=== PATIENT | female | born 1985 | race Caucasian/White ===

== ENCOUNTER 2024-11-16 19:30 | Emergency (ER) | payer OTHER, SELFPAY ==
[2024-11-16 19:31] VITALS: BP 147/86; PULSE 65; RESP 20; TEMP 36.8; O2SAT 99; BMI 22.6
[2024-11-16 19:59] LABS: Ur Creatinine Normal (Normal); Ur Specific Gravity Normal (Normal); Urine Amphetamines Negative (Negative); Urine Barbiturates Negative (Negative); Urine Benzodiazepines Negative (Negative); Urine Cocaine Negative (Negative); Urine MDMA Negative (Negative); Urine Methadone Negative (Negative); Urine Opiates Negative (Negative); Urine Oxycodone Negative (Negative); Urine Phencyclidine Negative (Negative); Urine THC Positive (Negative); Urine Tricyclic Antidepressant Negative (Negative); Urine pH Normal (Normal)
[2024-11-16 20:00] LABS: Add Manual Diff / Slide Review NO; Basophils Absolute Auto 100 /uL (0-100); Basophils Percent Auto 0.6 % (0-2); Eosinophils Absolute Auto 100 /uL (0-450); Eosinophils Percent Auto 0.4 % (2-4); Hemoglobin 14.6 g/dL (12.0-16.0); Lymphocytes Absolute Auto 2000 /uL (1100-4500); Lymphocytes Percent Auto 14.4 % (25-40); Mean Corpuscular HGB Conc 34.6 % (30-36); Mean Corpuscular Hemoglobin 32.5 PG (26-34); Mean Corpuscular Volume 93.9 fL (80-100); Monocytes Absolute Auto 1300 /uL (0-900); Monocytes Percent Auto 8.9 % (3-14); Neutrophils Absolute Auto 10800 /uL (1500-7000); Neutrophils Percent Auto 75.7 % (50-75); Platelet Count 328 X10^3/uL (150-400); Red Blood Cell Count 4.47 X10^6/uL (4.0-5.2); Red Cell Distribution Width 13.6 % (11.6-14.8); White Blood Cell Count 14.2 X10^3/uL (4.5-11.0)
[2024-11-16 20:01] LABS: Urine Volume 10mL (spun)
[2024-11-16 20:03] LABS: Bacteria Urine None Seen; RBC Urine None Seen (0-5/HPF); Squamous Epithelial Cell Urine 5-10 /HPF (0-5/HPF); WBC Urine 1-5/HPF (0-5/HPF)
[2024-11-16 20:11] LABS: Acetaminophen < 10 ug/mL (10-30); Alanine Aminotransferase 32 IU/L (<35); Albumin 4.9 g/dL (3.5-5.0); Albumin Globulin Ratio 1.4 (1.0-2.8); Alkaline Phosphatase 102 U/L (38-126); Aspartate Aminotransferase 89 IU/L (14-36); BUN Creatinine Ratio 9.4 (6-22); Bilirubin Total 0.9 mg/dL (0.2-1.3); Blood Urea Nitrogen 6 mg/dL (7-17); Calcium 9.5 mg/dL (8.4-10.2); Carbon Dioxide 26 mmol/L (22-32); Chloride 101 mmol/L (98-107); Estimated Glomerular Filt Rate > 60 mL/min (>60); Ethanol (ETOH) 217 mg/dL; Globulin 3.4 g/dL (1.7-4.1); Glucose 112 mg/dL (70-100); HEMOLYSIS < 15 (0-50); Potassium 4.3 mmol/L (3.4-5.1); Salicylate < 1.0 mg/dL (<20); Sodium 139 mmol/L (137-145); Total Protein 8.3 g/dL (6.3-8.2)
[2024-11-16 20:43] LABS: Free T4, Direct Thyroxine 1.48 ng/dL (0.78-2.19)
--- NOTE | 2024-11-16 20:43 | ED.GENADULT ---
HPI - General Adult <Ap DO Tayler - Last Filed: 11/17/24 03:54> General Chief complaint: Toxicology Problem Stated complaint: AGUSTIN ingested mushrooms and vaginal smell Time Seen by Provider: 11/16/24 20:43 Source: EMS and police Mode of arrival: EMS History of Present Illness HPI narrative: 39-year-old female without any significant past medical history presenting from the emergency department via EMS/police for altered mental status. According to police patient was found unresponsive outside and was brought in to be evaluated, at time of evaluation patient is speaking in full sentences she is standing moving all 4 extremities, she does endorse taking 2 gummy mushrooms as well as alcohol. She is also stating that she is complaining of some mild odor from her vagina, but denies any actual dysuria or hematuria. She denies any other symptoms at this time. On initial examination patient is tangential with her speech and thought however she is cooperative she denies any suicidal homicidal ideations at this time. Review of Systems <Ap Lester DO - Last Filed: 11/17/24 03:54> Review of Systems Narrative: General: Denies fever, chills, weight loss HEENT: Denies headache, eye drainage, eye irritation, head trauma, sore throat, voice change Cardiovascular: Denies any chest pain, palpitations, tachycardia Respiratory: Denies any shortness of breath, cough, wheeze, stridor GI/: Denies any abdominal pain, nausea, vomiting, diarrhea, bright red blood per rectum, melanotic stools, urinary frequency, urinary retention, dysuria, hematuria MSK: Denies any joint pain, muscle pains, swelling Skin: Denies any rashes, lesions, discoloration Neuro: Denies any headache, lightheadedness, dizziness, fainting, weakness Psych: Positive increased anxiety, positive drug ingestion Denies SI/HI Patient History <Ap Lester DO - Last Filed: 11/17/24 03:54> Social History Smoking Status: Current every day smoker Smoking Status: Current every day smoker tobacco type: cigarettes and vaping Alcohol type: wine and hard liquor Exam <Ap Lester DO - Last Filed: 11/17/24 03:54> Narrative Exam Narrative: General: Cooperative, patient disheveled, not in acute distress HEENT: Normocephalic, atraumatic, PERRLA, normal sclera, eyelids normal Neck: Active full range of motion, atraumatic Chest: Normal to inspection, negative crepitus, no overlying erythema ecchymosis Respiratory: Normal respiratory effort, not in acute respiratory distress, clear to auscultation bilaterally negative cough, wheeze, tachypnea, rhonchi, rales Cardiology: Regular rate rhythm negative gallop, murmur, rubs GI/: No tenderness to palpation, soft, non rigid, normal to inspection, exam deferred MSK: Full active range of motion in all 4 extremities, atraumatic, no tenderness to palpation of any bony prominences Skin: No rashes or lesions noted Neuro: Alert awake oriented x3, moves all 4 extremities spontaneously, cranial nerves intact, able to answer all questions appropriately follows commands appropriately Psych: Cooperative, negative suicidal or homicidal ideations, patient with pressured speech tangential but cooperative Initial Vital Signs Initial Vital Signs: Vital Signs Temperature 98.2 F 11/16/24 19:31 Pulse Rate 65 11/16/24 19:31 Respiratory Rate 20 11/16/24 19:31 Blood Pressure 147/86 H 11/16/24 19:31 Pulse Oximetry 99 11/16/24 19:31 Oxygen Delivery Method Room Air 11/16/24 19:31 <Nan Franco, DO - Last Filed: 11/17/24 18:49> Initial Vital Signs Initial Vital Signs: Vital Signs Temperature 98.2 F 11/16/24 19:31 Pulse Rate 65 11/16/24 19:31 Respiratory Rate 20 11/16/24 19:31 Blood Pressure 147/86 H 11/16/24 19:31 Pulse Oximetry 99 11/16/24 19:31 Oxygen Delivery Method Room Air 11/16/24 19:31 Course <Ap Lester, DO - Last Filed: 11/17/24 03:54> Orders Ordered: Discontinued Medications Sodium Chloride (Normal Saline 0.9%) 1,000 mls @ 1,000 mls/hr IV BOLUS ONE Stop: 11/16/24 21:48 Last Infusion: 11/16/24 23:00 Dose: Infused Documented By: Admin: 11/16/24 21:39 Dose: 1,000 mls/hr Documented By: FLORIAN Vital Signs Vital signs: Vital Signs - 8 hr 11/17/24 10:59 Pulse Rate 83 Blood Pressure 140/80 Pulse Oximetry 99 Oxygen Delivery Method Room Air <Nan Franco DO - Last Filed: 11/17/24 18:49> Orders Ordered: Discontinued Medications Sodium Chloride (Normal Saline 0.9%) 1,000 mls @ 1,000 mls/hr IV BOLUS ONE Stop: 11/16/24 21:48 Last Infusion: 11/16/24 23:00 Dose: Infused Documented By: Admin: 11/16/24 21:39 Dose: 1,000 mls/hr Documented By: FLORIAN Vital Signs Vital signs: Vital Signs - 8 hr 11/17/24 10:59 Pulse Rate 83 Blood Pressure 140/80 Pulse Oximetry 99 Oxygen Delivery Method Room Air Medical Decision Making <Ap Lester DO - Last Filed: 11/17/24 03:54> Differential Diagnosis Differential Diagnosis: Alcohol intoxication, drug abuse, electrolyte abnormality, UTI Lab Data 11/16/24 19:50 11/16/24 19:50 Labs: Lab Results 11/16/24 11/16/24 Range/Units 19:30 19:50 WBC 14.2 H (4.5-11.0) X10^3/uL RBC 4.47 (4.0-5.2) X10^6/uL Hgb 14.6 (12.0-16.0) g/dL Hct 42.0 (36-46) % MCV 93.9 (80-100) fL MCH 32.5 (26-34) PG MCHC 34.6 (30-36) % RDW 13.6 (11.6-14.8) % Plt Count 328 (150-400) X10^3/uL Neut % (Auto) 75.7 H (50-75) % Lymph % (Auto) 14.4 L (25-40) % Haines % (Auto) 8.9 (3-14) % Eos % (Auto) 0.4 L (2-4) % Baso % (Auto) 0.6 (0-2) % Neut # (Auto) 68009 H (6506-8452) /uL Lymph # (Auto) 2000 (0886-6653) /uL Haines # (Auto) 1300 H (0-900) /uL Eos # (Auto) 100 (0-450) /uL Baso # (Auto) 100 (0-100) /uL Sodium 139 (137-145) mmol/L Potassium 4.3 (3.4-5.1) mmol/L Chloride 101 (98-107) mmol/L Carbon Dioxide 26 (22-32) mmol/L BUN 6 L (7-17) mg/dL Creatinine 0.64 (0.52-1.04) mg/dL Estimated GFR > 60 (>60) mL/min BUN/Creatinine Ratio 9.4 (6-22) Glucose 112 H (70-100) mg/dL Calcium 9.5 (8.4-10.2) mg/dL Total Bilirubin 0.9 (0.2-1.3) mg/dL AST 89 H (14-36) IU/L ALT 32 (<35) IU/L Alkaline Phosphatase 102 (38-126) U/L Total Protein 8.3 H (6.3-8.2) g/dL Albumin 4.9 (3.5-5.0) g/dL Globulin 3.4 (1.7-4.1) g/dL Albumin/Globulin Ratio 1.4 (1.0-2.8) TSH 0.791 (0.47-4.68) uIU/mL Free T4 1.48 (0.78-2.19) ng/dL Urine RBC None seen (0-5/HPF) Urine WBC 1-5/hpf (0-5/HPF) Ur Squamous Epith Cells 5-10 /hpf H (0-5/HPF) Urine Bacteria None seen (None) Vol Urine Centrifuged 10ml (spun) Salicylates < 1.0 (<20) mg/dL U Opiates 300ng/mL cut Negative (Negative) Ur Oxycodone Screen Negative (Negative) Urine Methadone Screen Negative (Negative) Acetaminophen < 10 (10-30) ug/mL Ur Barbiturates Screen Negative (Negative) U Tricyclic Antidepress Negative (Negative) Ur Phencyclidine Scrn Negative (Negative) Ur Amphetamines Screen Negative (Negative) U Methamphetamines Scrn Negative (Negative) Ur MDMA Scrn (Ecstasy) Negative (Negative) U Benzodiazepines Scrn Negative (Negative) Urine Cocaine Screen Negative (Negative) U Marijuana (THC) Screen Positive H (Negative) Urine pH Normal (Normal) Urine Specific Falun Normal (Normal) Ethyl Alcohol 217 H ( - 10) mg/dL Ur Creatinine Normal (Normal) Ur Chlamydia DNA (PCR) Not detected N gonorrhoeae DNA (PCR) Not detected Point of Care Testing Test Results Negative Urine Dip Bedside Urine Glucose Negative Bedside Urine Bilirubin - Negative Bedside Urine Ketone - Negative Urine Specific Falun 1.005 Bedside Urine Occult Blood +++ Bedside Urine pH 6.0 Bedside Urine Protein - Negative Bedside Urine Urobilinogen - Negative Bedside Urine Nitrite - Negative Bedside Urine Leukocytes +/- 15 Esterase Point of care testing: Point of Care Testing Test Results Negative Urine Dip Bedside Urine Glucose Negative Bedside Urine Bilirubin - Negative Bedside Urine Ketone - Negative Urine Specific Falun 1.005 Bedside Urine Occult Blood +++ Bedside Urine pH 6.0 Bedside Urine Protein - Negative Bedside Urine Urobilinogen - Negative Bedside Urine Nitrite - Negative Bedside Urine Leukocytes +/- 15 Esterase MDM Narrative Medical decision making narrative: 39-year-old female without any significant past medical history presents for altered mental status, according to the police she was found outside unconscious, however at time of evaluation patient is talking standing moving all 4 extremities, she endorses taking 2 gummies and drinking alcohol, she denies any suicidal or homicidal ideations, she states that she does not understand why the police brought her her. On exam patient with tangential was pressured speech however she is cooperative. Her only complaints is that she has a ?abnormal smell coming from her vagina, she states that this just happened a few days ago. Patient was medically cleared, urinalysis positive for THC, urinalysis not consistent with acute urinary tract infection, lab work does show patient with alcohol of 217 4.21.25 @ 0300: Patient was re-evaluated, she is not having any suicidal homicidal ideations, patient is clinically sober at this time, she has been medically cleared. Lab work unremarkable, she is stating that she would like to talk to a secondary social studies teacher given the fact that she is having difficulty navigating her follow up so included but not limited to OBGYN, primary care, Psychiatry, she states that she has been to [facility] in the past and she ?does not like going there because all they do his drug her up she is requesting additional resources and help in regards to coping with her history of PTSD. She states that she is agreeable to wait for secondary social studies teacher in the a.m., however patient also understands that she may leave at any time. 0700: Patient was signed out to , patient is pending Social work eval <Nan Marroquin Salvador, DO - Last Filed: 11/17/24 18:49> Lab Data Labs: Lab Results 11/16/24 11/16/24 Range/Units 19:30 19:50 WBC 14.2 H (4.5-11.0) X10^3/uL RBC 4.47 (4.0-5.2) X10^6/uL Hgb 14.6 (12.0-16.0) g/dL Hct 42.0 (36-46) % MCV 93.9 (80-100) fL MCH 32.5 (26-34) PG MCHC 34.6 (30-36) % RDW 13.6 (11.6-14.8) % Plt Count 328 (150-400) X10^3/uL Neut % (Auto) 75.7 H (50-75) % Lymph % (Auto) 14.4 L (25-40) % Haines % (Auto) 8.9 (3-14) % Eos % (Auto) 0.4 L (2-4) % Baso % (Auto) 0.6 (0-2) % Neut # (Auto) 10832 H (4634-1774) /uL Lymph # (Auto) 2000 (4373-9287) /uL Haines # (Auto) 1300 H (0-900) /uL Eos # (Auto) 100 (0-450) /uL Baso # (Auto) 100 (0-100) /uL Sodium 139 (137-145) mmol/L Potassium 4.3 (3.4-5.1) mmol/L Chloride 101 (98-107) mmol/L Carbon Dioxide 26 (22-32) mmol/L BUN 6 L (7-17) mg/dL Creatinine 0.64 (0.52-1.04) mg/dL Estimated GFR > 60 (>60) mL/min BUN/Creatinine Ratio 9.4 (6-22) Glucose 112 H (70-100) mg/dL Calcium 9.5 (8.4-10.2) mg/dL Total Bilirubin 0.9 (0.2-1.3) mg/dL AST 89 H (14-36) IU/L ALT 32 (<35) IU/L Alkaline Phosphatase 102 (38-126) U/L Total Protein 8.3 H (6.3-8.2) g/dL Albumin 4.9 (3.5-5.0) g/dL Globulin 3.4 (1.7-4.1) g/dL Albumin/Globulin Ratio 1.4 (1.0-2.8) TSH 0.791 (0.47-4.68) uIU/mL Free T4 1.48 (0.78-2.19) ng/dL Urine RBC None seen (0-5/HPF) Urine WBC 1-5/hpf (0-5/HPF) Ur Squamous Epith Cells 5-10 /hpf H (0-5/HPF) Urine Bacteria None seen (None) Vol Urine Centrifuged 10ml (spun) Salicylates < 1.0 (<20) mg/dL U Opiates 300ng/mL cut Negative (Negative) Ur Oxycodone Screen Negative (Negative) Urine Methadone Screen Negative (Negative) Acetaminophen < 10 (10-30) ug/mL Ur Barbiturates Screen Negative (Negative) U Tricyclic Antidepress Negative (Negative) Ur Phencyclidine Scrn Negative (Negative) Ur Amphetamines Screen Negative (Negative) U Methamphetamines Scrn Negative (Negative) Ur MDMA Scrn (Ecstasy) Negative (Negative) U Benzodiazepines Scrn Negative (Negative) Urine Cocaine Screen Negative (Negative) U Marijuana (THC) Screen Positive H (Negative) Urine pH Normal (Normal) Urine Specific Falun Normal (Normal) Ethyl Alcohol 217 H ( - 10) mg/dL Ur Creatinine Normal (Normal) Ur Chlamydia DNA (PCR) Not detected N gonorrhoeae DNA (PCR) Not detected Point of Care Testing Test Results Negative Urine Dip Bedside Urine Glucose Negative Bedside Urine Bilirubin - Negative Bedside Urine Ketone - Negative Urine Specific Falun 1.005 Bedside Urine Occult Blood +++ Bedside Urine pH 6.0 Bedside Urine Protein - Negative Bedside Urine Urobilinogen - Negative Bedside Urine Nitrite - Negative Bedside Urine Leukocytes +/- 15 Esterase Point of care testing: Point of Care Testing Test Results Negative Urine Dip Bedside Urine Glucose Negative Bedside Urine Bilirubin - Negative Bedside Urine Ketone - Negative Urine Specific Falun 1.005 Bedside Urine Occult Blood +++ Bedside Urine pH 6.0 Bedside Urine Protein - Negative Bedside Urine Urobilinogen - Negative Bedside Urine Nitrite - Negative Bedside Urine Leukocytes +/- 15 Esterase [facility] Narrative Medical decision making narrative: 39-year-old female without any significant past medical history presents for altered mental status, according to the police she was found outside unconscious, however at time of evaluation patient is talking standing moving all 4 extremities, she endorses taking 2 gummies and drinking alcohol, she denies any suicidal or homicidal ideations, she states that she does not understand why the police brought her her. On exam patient with tangential was pressured speech however she is cooperative. Her only complaints is that she has a ?abnormal smell coming from her vagina, she states that this just happened a few days ago. Patient was medically cleared, urinalysis positive for THC, urinalysis not consistent with acute urinary tract infection, lab work does show patient with alcohol of 217 4.21.25 @ 0300: Patient was re-evaluated, she is not having any suicidal homicidal ideations, patient is clinically sober at this time, she has been medically cleared. Lab work unremarkable, she is stating that she would like to talk to a secondary social studies teacher given the fact that she is having difficulty navigating her follow up so included but not limited to OBGYN, primary care, Psychiatry, she states that she has been to [facility] in the past and she ?does not like going there because all they do his drug her up she is requesting additional resources and help in regards to coping with her history of PTSD. She states that she is agreeable to wait for secondary social studies teacher in the a.m., however patient also understands that she may leave at any time. 0700: Patient was signed out to , patient is pending Social work eval Patient signed out to myself by Dr. Lester. Patient seen and evaluated by myself. Patient's speech is little bit pressured but she was easily redirectable otherwise appropriate no SI, no HI she does not appear to be gravely disabled in any way she mentioned she was follow up at [facility] in the next several weeks. She was interested in outpatient resources. She has had inpatient stays in the past but it was not seeking any inpatient. She was alert, appropriate. Patient met with [facility]. Discharge Plan Departure Patient Disposition: Home Clinical Impression: Alcoholic intoxication, Drug abuse, Stress reaction Instructions: DI for Substance Use Disorder Activity Restrictions/Additional Instructions: Follow up with your appointment at [facility] as well as the appointment the secondary social studies teacher has set up for you. If you're feeling suicidal or having suicidal thoughts, contact the suicide hotline (this can also be used for self referral for services): . Please return if you have thoughts of harming yourself or others or other new or concerning changes. Referrals: Miscellaneous,Doctor, MD [Primary Care Provider] - Stand Alone Forms: Patient Portal/API/Survey
[2024-11-16 20:57] LABS: Thyroid Stimulating Hormone 0.791 uIU/mL (0.47-4.68)
[2024-11-16] MEDS: SODIUM CHLORIDE 0.9% 1,000 ML 1000 ML IV (21:39)
[2024-11-16 21:48] LABS: Urine N gonorrhoeae NOT DETECTED
[2024-11-16 21:58] LABS: Urine Chlamydia NOT DETECTED
--- NOTE | 2024-11-17 02:59 | PC.NURSE ---
Pt having increased anxiety/aggitation. Sat with pt at bedside, completed about 20 minutes of talk therapy.
--- NOTE | 2024-11-17 08:01 | PC.NURSE ---
Assumed care of pt at 0700. Pt awake and alert, anxious, and very talkative. Easily redirectable. States that she wants outpatient help and resources and has appointment at [facility] at the end of October. Pt is showing pressured speech, ideas of reference and flight of ideas. Significantly anxious and hyperfixated on potential problems related to recent unprotected sex. notified of pt status. Pt agrees to see DENTAL TREATMENT COORDINATOR.
[2024-11-17 10:59] VITALS: BP 140/80; PULSE 83; O2SAT 99
--- NOTE | 2024-11-17 13:09 | CM.SWNOTE ---
ED HIGH MAN Assessment Note: HIGH MAN - Supervisor Varnish Assessment HIGH MAN/Supervisor Varnish Assessment Time Spent with Patient Start date 11/17/24 Visit Start Time 09:30 End date 11/17/24 Visit End Time 10:00 Total time Care Management spent on 30 minutes patient visit-in minutes Mental Health Screening Include Onset, Duration, Intensity Presenting Problem Patient presented to the ED last evening via AGUSTIN by Ramona MURCIA. It was reported that patient was incoherent, having a manic episode after taking mushrooms, THC and alcohol. It is reported pt is not endorsing any SI/HI and is stephanie for safety. Precipitating Event(s) Patient is currently houseless , she is camping at [facility]. 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 Patient Strengths Patient is communicative and seeking all available resources. Current Behavioral Health Provider(s) None established currently. Include Facility, Provider, Ph. # Psych. Hx Mental Health and Chemical Previous Dx of TBI, anxiety Dependency and bipolar disorder. Patient was previously prescribed escitalopram and lamotrigine. Utox is positive for ETOH, THC . Family Hx of Behavioral Abuse Pt states she is estranged from her family currently and she has majority of her family in [place]. Psychiatric Hospitalizations (date(s)/ Patient states she has a location) previous inpatient AGUSTIN stay at [facility] but could not remember dates. Psychosocial information & Support Patient is a 39yo female who Systems is currently unhoused in [place]. School/Work Unemployed. Legal Concerns Legal Matters - Outstanding Issues None reported. Mental Status Orientation (Person/Place/Time) AOx3 Affect (Congruent with Mood?) Full range, labile, elevated Thought Content - Specify/Describe None reported, none identified Obsessions, Delusions, Hallucinations during assessment. Thought Processes (Nbzuokq-Zlxfayxm-Ginv Goal directed, logical. Jhadnzyg-Ubteaxxu-Jztvekodqt- Qouucolpvcfxol-Lscrlsh-Ubecauorbsoz- Thought Blocking) Speech (Jgenhy-Kqaa-Urtoukp-Rapid-Soft- Rapid, circumstantial, Loud-Pressured) compulsive Motor (Jawxuy-Grdkkyxob-Etmy-Other) Excessive Insight (Pvil-Baby-Evki/Limited) Good Judgement (Oqgz-Wubs-Afvu/Limited) Fair Impulse Control (Adequate-Impaired) Impaired Memory (Ijwffvctd-Zlajoy-Nftttg, Intact Impaired-Intact) Concentration (Intact-Impaired) Intact Attention (Intact-Impaired) Intact Behavior (Appropriate-Inappropriate) Appropriate Risk Assessment Suicidal Ideation (Plan) No Homicidal Ideation (Plan) No Intervention Intervention Reviewed chart and discussed with ED Provider pt's medical status and discharge needs. ED HIGH MAN meets with patient. Patient contracts for safety, willing to discharge back to the community with resources. ED HIGH MAN able to confirm the following appointments: - [facility] on 11/24 at 11:00am for PCP/WILDA - [facility] on 11/25 at 1:30p - [facility] Community Services on 12/17 ED HIGH MAN coordinated intake application at the [facility], pt educated to follow up with Rafita Kevin, Landscape Manager, provided contact information. ED HIGH MAN discussed [employer] day passes, provided pt with 5 day passes as she navigates obtaining employment and housing with appointments . At this time, it is the opinion of this HIGH MAN that patient would benefit from outpatient treatment and community coordination. HIGH MAN informs ED provider, Dr. Franco, who indicates agreement. HIGH MAN informs GLENN Puentes. Plan RA Plan Pt to discharge to community and follow up with community contact/referrals. Pt provided with all follow up appt times and contact information. NOEMI Max
== END 2024-11-17 11:50 | disposition home or self-care (01) ==
PROVIDERS: Student in an Organized Health Care Education/Training Program; Emergency Provider Emergency Medicine
DX: F10.129 Alcohol abuse with intoxication, unspecified (principal); F43.9 Reaction to severe stress, unspecified; F12.10 Cannabis abuse, uncomplicated; Y90.7 Blood alcohol level of 200-239 mg/100 ml
CPT/HCPCS: 36415; 80053; 80305; 80320; 80329; 81003; 81015; 81025; 84439; 84443; 85025; 87086; 87491; 87591; 96360; 99284; G0480